=== PATIENT | female | born 1960 | race Caucasian/White ===

== ENCOUNTER 2018-04-24 13:55 | Emergency (ER) | payer OTHER | END 2018-04-24 14:33 | disposition home or self-care (01) | LOC: FTE 13:55 | DX: R50.9 Fever, unspecified (principal); I10 Essential (primary) hypertension; R40.2412 Glasgow coma scale score 13-15, at arrival to emergency department; R51 Headache; R05 Cough; Z79.84 Long term (current) use of oral hypoglycemic drugs | CPT/HCPCS: 99283; Z7502 ==